=== PATIENT | female | born 1975 | race Hispanic/Latino ===

== ENCOUNTER 2025-03-21 14:31 | Emergency (ER) | payer SELFPAY ==
[~2025-03-21] VITALS: Ht 165.1 cm; Wt 95.3 kg
--- NOTE | 2025-03-21 14:45 | NUR ---
heat packs applied to lower abdomen, has been using tramadol at home no relief.
[2025-03-21] MEDS: morPHINE 2 MG SYG IVP STA (15:05)
[2025-03-21] MEDS: ondanSETRON 4MG INJ IVP STA (15:05)
[2025-03-21] MEDS: 0.9%NACL 1000ML 1,000 ML IV STA (15:05)
[2025-03-21 15:41] LABS: BASOPHILS # (AUTO) 0.02 K/uL (0.00-0.20); BASOPHILS % (AUTO) 0.2 % (0.0-5.0); HEMATOCRIT 21.3 % (36-48); IMMATURE GRANULOCYTE ABSOLUTE 0.08 K/uL (0-1); LYMPHOCYTES # (AUTO) 0.5 K/uL (1.0-4.8); LYMPHOCYTES % (AUTO) 4.4 % (21.0-51.0); MEAN CORPUSCULAR HEMOGLOBIN 22.4 pg (27.0-33.0); MEAN CORPUSCULAR VOLUME 74.5 fL (79-99); MONOCYTES # (AUTO) 0.7 K/uL (0.1-1.0); MONOCYTES % (AUTO) 6.3 % (3.0-13.0); NEUTROPHILS # (AUTO) 10.2 K/uL (1.8-7.7); NEUTROPHILS % (AUTO) 88.4 % (40.0-77.0); PLATELET COUNT (AUTO) 141 K/uL (130-400); RED BLOOD CELL COUNT(AUTO) 2.86 MIL/uL (4.00-5.50); RED CELL DISTRIBUTION WIDTH 17.5 % (11.0-15.5); WHITE BLOOD COUNT (AUTO) 11.5 K/uL (4.8-10.8)
[2025-03-21 15:51] LABS: CREATININE 0.7 mg/dL (0.5-1.0); POTASSIUM 3.3 mmol/L (3.5-5.1)
--- NOTE | 2025-03-21 16:09 | ERN ---
ED Note History of Present Illness Stated Complaint: PELVIC PAIN W/VAGINAL BLEEDING Chief Complaint: Vaginal Problems/Bleeding Time Seen by MD: 14:35 Time Seen by Midlevel: 14:40 Dictation: 49-YEAR-OLD FEMALE WITH NO PAST MEDICAL HISTORY COMING IN COMPLAINING OF VAGINAL BLEEDING IN THE LOWER ABDOMINAL CRAMPING. PATIENT STATES HER MENSES BEGAN YESTERDAY AND TODAY STARTED WITH HEAVY BLEEDING AND CLOTS. ASKED MENSTRUAL PERIOD WAS FOUR WEEKS AGO. PATIENT STATES HER LAST MENSTRUATION WAS NOT THIS HEAVY. Allergies: Coded Allergies: No Known Drug Allergies (Unverified Allergy, Unknown, 03/21/25) Past Medical History Past Medical History: Other Additional Past Medical Hx: THYROID PROBLEMS AND GALLSTONES Surgical History: Cholecystectomy Review of System Dictation CONSTITUTIONAL: NEGATIVE FOR FEVER,CHILLS, AND WEIGHT LOSS EYES: NEGATIVE FOR INJURY, PAIN,REDNESS, AND DISCHARGE ENT: NEGATIVE FOR INJURY,PAIN OR SWELLING CARDIOVASCULAR: NEGATIVE FOR CHEST PAIN, PALPITATIONS, AND EDEMA RESPIRATORY: NEGATIVE FOR SHORTNESS OF BREATH, COUGH, AND WHEEZING, ABDOMEN/GI: CLEANING OF LOWER ABDOMINAL CRAMPING, NO NAUSEA, NO VOMITING, NO DIARRHEA, AND NO CONSTIPATION BACK: NEGATIVE FOR INJURY AND PAIN : NEGATIVE FOR INJURY, BLEEDING AND DISCHARGE MS/EXTREMITY: NEGATIVE FOR INJURY AND DEFORMITY SKIN: NEGATIVE FOR RASH, AND DISCOLORATION NEURO: NEGATIVE FOR HEADACHE, WEAKNESS, NUMBNESS, TINGLING, AND SEIZURE PSYCH: NEGATIVE FOR SUICIDE IDEATION, HOMICIDAL IDEATION, AND HALLUCINATIONS Review of Systems: was completed Initial Vital Sign VS Vital Signs Date Time Temp Pulse Resp B/P (MAP) Pulse Ox O2 Delivery O2 Flow Rate FiO2 03/21/25 14:33 87 25 108/71 97 Room Air 0 03/21/25 14:41 97.9 21 Physical Exam Dictation GENERAL: AWAKE, ALERT, NAD HEAD/FACE: NORMOCEPHALIC, ATRAUMATIC EYES: PERRL, EOMI, VISION AT BASELINE ENT: ORAL CAVITY CLEAR, TMS CLEAR, NO SIGNS OF INFECTION NECK: TRACHEA MIDLINE, SUPPLE, NO NUCHAL RIGIDITY CARDIOVASCULAR: RRR, NORMAL S1/S2, NO MRGS, NO JVD RESPIRATORY: CTAB, NO RESPIRATORY DISTRESS, NO RALES OR WHEEZES ABDOMEN: SOFT, NON-TENDER, NON-DISTENDED, NORMAL BOWEL SOUNDS, NO GUARDING OR REBOUND. SKIN: WARM, DRY, NORMAL TURGOR, NO RASH MS/EXTREMITY: PULSES EQUAL, NO CYANOSIS, NEUROVASCULAR INTACT, FROM NEURO: COAX4, GCS 15, STRENGTH 5/5, CN 2-12 INTACT, NORMAL CEREBELLAR EXAM, NORMAL GAIT, PSYCH: NORMAL BEHAVIOR, MOOD, AND AFFECT NORMAL Results (Laboratory/Radiology) Laboratory/Radiology Laboratory Tests Test 03/21/25 15:31 White Blood Count 11.5 K/uL (4.8-10.8) H Red Blood Count 2.86 MIL/uL (4.00-5.50) L Hemoglobin 6.4 g/dL (12.0-16.0) *L Hematocrit 21.3 % (36-48) L Mean Corpuscular Volume 74.5 fL (79-99) L Mean Corpuscular Hemoglobin 22.4 pg (27.0-33.0) L Mean Corpuscular Hemoglobin Concent 30.0 g/dL (32.0-36.0) L Red Cell Distribution Width 17.5 % (11.0-15.5) H Platelet Count 141 K/uL (130-400) Mean Platelet Volume 9.1 fL (7.5-10.5) Immature Granulocyte % (Auto) 0.7 % (0-1) Neutrophils (%) (Auto) 88.4 % (40.0-77.0) H Lymphocytes (%) (Auto) 4.4 % (21.0-51.0) L Monocytes (%) (Auto) 6.3 % (3.0-13.0) Eosinophils (%) (Auto) 0.0 % (0.0-8.0) Basophils (%) (Auto) 0.2 % (0.0-5.0) Neutrophils # (Auto) 10.2 K/uL (1.8-7.7) H Lymphocytes # (Auto) 0.5 K/uL (1.0-4.8) L Monocytes # (Auto) 0.7 K/uL (0.1-1.0) Eosinophils # (Auto) 0.00 K/uL (0.00-0.70) Basophils # (Auto) 0.02 K/uL (0.00-0.20) Absolute Immature Granulocyte (auto 0.08 K/uL (0-1) Nucleated Red Blood Cells 0.0 % (0.0-0.19) White Cell Morphology Comment See comments Red Blood Cell Morphology See comments Prothrombin Time 11.3 SEC (9.6-11.6) Prothromb Time International Ratio 1.07 (0.85-1.15) Activated Partial Thromboplast Time 26.8 SEC (26.3-35.5) Sodium Level 139 mmol/L (136-145) Potassium Level 3.3 mmol/L (3.5-5.1) L Chloride Level 106 mmol/L (101-111) Carbon Dioxide Level 27 mmol/L (21-32) Blood Urea Nitrogen 9 mg/dL (7-18) Creatinine 0.7 mg/dL (0.5-1.0) Glomerular Filtration Rate Calc 105 mL/min (>90) Random Glucose 121 mg/dL (70-105) H Total Calcium 7.3 mg/dL (8.5-10.1) L Human Chorionic Gonadotropin, Quant 0 mIU/mL (0-5) Labs Reviewed?: Yes ED Course ED Course Orders Procedure Category Date Status Time Cbc With Differential LAB 03/21/25 Complete 14:55 Basic Metabolic Panel LAB 03/21/25 Complete 14:55 Hcg,Quantitative LAB 03/21/25 Complete 14:55 0.9%Nacl 1000ml (Ns PHA 03/21/25 In Process 1000ml) 14:55 Ondansetron 4mg Inj PHA 03/21/25 Complete (Zofran 4mg Inj) 14:55 Morphine 2mg Syg PHA 03/21/25 Complete (Morphine 2mg Syg) 14:55 Type And Screen BBK 03/21/25 In Process 15:57 Rbc-Active Bleeding BBK 03/21/25 In Process 15:58 Pt And Ptt LAB 03/21/25 Complete 16:47 Medroxyprogesterone PHA 03/21/25 Complete Acet 5mg (Provera 5m 17:21 Current Medications Medications (Trade) Dose Ordered Sig/Syed Route PRN Reason Start Time Stop Time Status Last Admin Dose Admin Medroxyprogesterone Acetate (PROvera 5MG TAB) 40 mg ONCE STAT PO 03/21/25 16:49 03/21/25 16:50 Cancel Medroxyprogesterone Acetate (PROvera 5MG TAB) 40 mg ONCE STAT PO 03/21/25 17:21 03/21/25 17:22 DC Morphine Sulfate (morPHINE 2MG SYG) 2 mg ONCE STAT IVP 03/21/25 14:55 03/21/25 15:03 DC 03/21/25 15:05 Ondansetron HCl (zoFRAN 4MG INJ) 4 mg ONCE STAT IVP 03/21/25 14:55 03/21/25 15:03 DC 03/21/25 15:05 Sodium Chloride 1,000 ml @ 100 mls/hr Q10H STAT IV 03/21/25 14:55 03/22/25 00:54 03/21/25 15:05 Vital Signs Date Time Temp Pulse Resp B/P (MAP) Pulse Ox O2 Delivery O2 Flow Rate FiO2 03/21/25 17:01 98.1 74 18 106/66 98 Room Air* 0 21 03/21/25 16:14 98.6 68 18 110/68 98 Room Air* 0 21 03/21/25 15:14 99.3 80 18 100/58 98 Room Air* 0 21 03/21/25 14:41 97.9 80 18 105/51 100 Room Air* 0 21 03/21/25 14:33 87 25 108/71 97 Room Air 0 Medical Decision Making MDM MDM: 49-YEAR-OLD FEMALE WITH NO PAST MEDICAL HISTORY COMING IN COMPLAINING OF VAGINAL BLEEDING IN THE LOWER ABDOMINAL CRAMPING. PATIENT STATES HER MENSES BEGAN YESTERDAY AND TODAY STARTED WITH HEAVY BLEEDING AND CLOTS. ASKED MENSTRUAL PERIOD WAS FOUR WEEKS AGO. PATIENT STATES HER LAST MENSTRUATION WAS NOT THIS HEAVY. EXAM DONE WITH AIDE NURSE AT BEDSIDE. MODERATE AMOUNT OF BLEEDING, SMALL CLOTS NOTED.CBC SHOWS MILD LEUKOCYTOSIS OF 11.5. HEMOGLOBIN OF 6.4 AND HEMATOCRIT IS 21. CONSISTENT WITH A MICROCYTIC ANEMIA. NO THROMBOCYTOPENIA. CHEMISTRY SHOWS MILD HYPOKALEMIA AT 3.3. NORMAL KIDNEY FUNCTION. GLUCOSE OF 121. SPOKE TO DR. DEWITT [facility] ON-CALL AT [facility], RECOMMENDED GIVE PROVERA 40 MG ONE TIME DOSE HERE IN THE ER, AND IF HER COAGS ARE NORMAL PATIENT WILL BE TRANSFERRED TO THEIR HOSPITAL.BLOOD TRANSFUSION STARTED IN ER. DIFFERENTIAL DIAGNOSIS: ANEMIA, MENORRHAGIA RATIONALE: TESTS CONSIDERED AND ORDERED SECONDARY TO SHARED DECISION MAKING INC LUDE: LABS, ECG AND RADIOLOGY PREVIOUS OUTSIDE RECORDS REVIEWED: OLD ER VISITS. RISK OF COMPLICATION AND/OR MORBIDITY OR MORTALITY OF PATIENT MANAGEMENT: NONE MEDICATIONS-PER MEDICATION RECONCILIATION NEED FOR HOSPITALIZATION: PATIENT DOES MEET CRITERIA FOR HOSPITALIZATION. NEED FOR EMERGENCY MAJOR/MINOR SURGERY: NO THERE ARE NO SOCIAL CONCERNS WITH THIS PATIENT. PRESCRIPTION DRUG MANAGEMENT PRESCRIPTIONS WILL INCLUDE SYMPTOMATIC CARE PATIENT'S PRIOR EXTERNAL MEDICAL RECORDS FROM OTHER ER VISITS WERE REVIEWED BY ME INDICATED. PRIOR TESTING AND RESULTS FROM PREVIOUS VISITS WERE REVIEWED. PRIOR TESTS WERE TAKEN INTO ACCOUNT WITH MEDICAL DECISION MAKING AND RESOURCE UTILIZATION, INDEPENDENT HISTORIAN/HISTORIANS WERE USED TO OBTAIN COMPLETE MEDICAL HISTORY. I INDEPENDENTLY INTERPRETED THE TEST THAT WERE PERFORMED, RESULTS WERE REVIEWED BY ME AND CONSIDERED FINDINGS ON RADIOLOGY IF ORDERED. MEDICAL MANAGEMENT AND EXAMINATION INTERPRETATION DISCUSSIONS WERE HAD BY ME WITH OTHER QUALIFIED HEALTHCARE PROFESSIONALS INDICATED FOR THE PATIENT'S CARE. DX & DISP Disposition: Transfer Decision to Admit Date: March 21, 2025 Decision to Admit Time: 17:24 Departure Impression: Primary Impression: Severe anemia Additional Impression: Menorrhagia Condition: Stable Referrals: SELF,REFERRAL (PCP) I have reviewed the case, and I agree with, Diagnosis and Plan DENNIS ORONA NP March 21, 2025 16:09
[2025-03-21 17:19] LABS: INR 1.07 (0.85-1.15); PROTHROMBIN TIME 11.3 SEC (9.6-11.6)
[2025-03-21 17:21] LABS: PARTIAL THROMBOPLASTIN TIME 26.8 SEC (26.3-35.5)
--- NOTE | 2025-03-21 18:14 | NUR ---
sbar given to receiving RN rachael at [facility] [place] RM [id number]
[2025-03-21 18:45] VITALS: BP 106/77; PULSE 84; RESP 18; TEMP 99.5; O2SAT 98
== END 2025-03-21 19:26 | disposition short-term general hospital (02) ==
LOC: EDH 14:31
DX: D64.9 Anemia, unspecified (principal); N92.0 Excessive and frequent menstruation with regular cycle; R10.2 Pelvic and perineal pain; Z79.3 Long term (current) use of hormonal contraceptives; Z90.49 Acquired absence of other specified parts of digestive tract
CPT/HCPCS: 99285; 36430; 96374; 96361; 96375; 80048; 84702; 85025; 85610; 85730; 86850; 86900; 86901; 86923; 36415; P9016; J2270; J7030; J2405